=== PATIENT | female | born 1965 | race Caucasian/White ===

== ENCOUNTER 2019-07-29 08:35 | Emergency (ER) | payer MEDICAID ==
[~2019-07-29] VITALS: Ht 152.4 cm; Wt 76.0 kg
[~2019-07-29 08:35] MED LIST: ACET-141 PO; IBUP200C11 PO
[2019-07-29 08:39] VITALS: Ht 152.4 cm; Wt 76.0 kg
[2019-07-29] MEDS ORDERED: IPRATROPIUM (NEB) 0.5 MG/2.5 ML AMP INH STA (08:45)
[2019-07-29] MEDS ORDERED: ALBUTEROL 0.083% (NEB) 2.5 MG/3 ML AMP INH STA (08:45)
[2019-07-29] MEDS ORDERED: NITROGLYCERIN 2% 1 GM OINT PKT TD STA (09:23)
[2019-07-29] MEDS ORDERED: NITROGLYCERIN 0.4 MG/HR PATCH TRANSDERM ONE (09:30)
[2019-07-29] MEDS ORDERED: FUROSEMIDE 40 MG INJ IV ONE (09:30)
[2019-07-29] MEDS ORDERED: NITROGLYCERIN 0.3 MG/HR PATCH TRANSDERM ONE (09:30)
[2019-07-29] MEDS ORDERED: NITROGLYCERIN 50 MG/D5W (PMX) 250 ML ONE (09:40)
[2019-07-29] MEDS ORDERED: SOD CHLORIDE 0.9% 100 ML ONE ×2 (09:43→09:58)
[2019-07-29] MEDS ORDERED: IODIXANOL LOCM 100 ML BTL ONE ×2 (09:43→09:58)
[2019-07-29] MEDS: NITROGLYCERIN 50 MG/D5W (PMX) 250 ML IV SCH ×2 (10:00→10:28)
[2019-07-29] MEDS ORDERED: METOPROLOL 5 MG INJ ONE (10:19)
[2019-07-29] MEDS ORDERED: METOPROLOL 5 MG INJ IV ONE (10:30)
[2019-07-29] MEDS ORDERED: niCARdipine-NS 0.1MG/ML DRIP 200 ML IV SCH (11:00)
[2019-07-29] MEDS ORDERED: morphine 2 MG INJ ONE (11:19)
[2019-07-29] MEDS ORDERED: morphine 2 MG INJ IV STA ×3 (12:01→12:52)
[2019-07-29 12:20] VITALS: BP 120/52; PULSE 67; RESP 20
== END 2019-07-29 13:51 | disposition short-term general hospital (02) ==
LOC: E/R 08:35
DX: I71.00 Dissection of unspecified site of aorta (principal); I50.9 Heart failure, unspecified; I11.0 Hypertensive heart disease with heart failure; N19 Unspecified kidney failure
CPT/HCPCS: 36415; 36600; 71045; 71275; 75635; 80053; 82803; 83605; 83880; 84484; 85025; 85378; 85610; 85730; 87040; 93005; 94664; 96374; 96375; 96376; J1940; J2270; Q9967; Z7502; Z7610